=== PATIENT | male | born 1985 | race Hispanic/Latino ===

== ENCOUNTER 2017-05-07 21:08 | Emergency (ER) | payer SELFPAY ==
[~2017-05-07] VITALS: Ht 165.1 cm; Wt 83.6 kg
[2017-05-07 21:55] LABS: HEMOGLOBIN 14.1 g/dl (14.0-18.0); IMMATURE GRANULOCYTES 0.3 % (0.0-1.0); MEAN CELL VOLUME 93.2 fL CALC (80.0-100.0); MEAN CORPUSCULAR HGB 32.9 pG CALC (26.0-32.0); MEAN CORPUSCULAR HGB CONC 35.3 g/L CALC (32.0-36.0); NEUT# 7.05 thou/uL (1.82-7.42); RED BLOOD COUNT 4.29 mill/uL (4.70-6.10); RED CELL DISTRI WIDTH 11.9 % (11.5-15.5)
[2017-05-07 21:57] LABS: URINE BILIRUBIN - DIPSTICK NEGATIVE (NEGATIVE); URINE BLOOD DIPSTICK NEGATIVE (NEGATIVE); URINE CLARITY CLEAR; URINE COLOR YELLOW; URINE GLUCOSE - DIPSTICK NEGATIVE (NEGATIVE); URINE KETONE TRACE mg/dL (NEGATIVE); URINE LEUK ESTERASE NEGATIVE (NEGATIVE); URINE NITRITE - DIPSTICK NEGATIVE (Negative); URINE PH 7.5 (4.5-8.0); URINE PROTEIN - DIPSTICK TRACE mg/dL (NEG-TRACE)
[2017-05-07 22:05] LABS: ALBUMIN 4.7 g/dL (3.2-5.0); ALKALINE PHOSPHATASE 121 u/l (38-126); AMYLASE 43 u/l (30-110); ANION GAP 19 (6-22 (CALC)); BILIRUBIN, TOTAL 0.9 mg/dL (0.0-1.4); BUN 10 mg/dL (9-20); BUN/CREATININE RATIO 15 (12-20 (CALC)); CALCIUM 9.4 mg/dL (8.4-10.2); CARBON DIOXIDE 21 mmol/l (22-30); CHLORIDE 107 mmol/l (95-108); CREATININE 0.7 mg/dL (0.7-1.3); GFR > 60 ML/MIN (>=60 (CALC)); GFR FOR AFR.AMER. > 60 ML/MIN (>=60 (CALC)); GLUCOSE 100 mg/dL (75-110); LIPASE 37 u/l (23-300); POTASSIUM 3.9 mmol/l (3.5-5.1); SGOT/AST 38 u/l (17-59); SGPT/ALT 42 u/l (21-72); SODIUM 142 mmol/l (137-146); TOTAL PROTEIN 7.9 g/dL (6.3-8.2)
[2017-05-07] MEDS ORDERED: CIPROFLOXACN500 MG PO (23:24)
[2017-05-07] MEDS ORDERED: METRONIDAZOL500 MG PO (23:24)
[2017-05-07 23:35] VITALS: BP 116/66
== END 2017-05-07 23:35 | disposition home or self-care (01) | DRG 392 ==
LOC: ED 21:08
PROVIDERS: Emergency Medicine
DX: K52.9 Noninfective gastroenteritis and colitis, unspecified (principal); R50.9 Fever, unspecified; R10.30 Lower abdominal pain, unspecified
CPT/HCPCS: Q9967

== ENCOUNTER 2017-06-23 12:15 | Emergency (ER) | payer SELFPAY ==
[~2017-06-23] VITALS: Ht 165.1 cm; Wt 84.0 kg
[~2017-06-23 12:15] MED LIST: CIPROFLOXACN500 MG PO; METRONIDAZOL500 MG PO
[2017-06-23] MEDS ORDERED: CIPROFLOXACN750 MG PO (13:56)
[2017-06-23 14:48] VITALS: BP 148/90
== END 2017-06-23 15:00 | disposition home or self-care (01) | DRG 605 ==
LOC: ED 12:15
PROC: 0H9FXZZ Drainage of Right Hand Skin, External Approach (ICD-10-PCS; principal; 2017-06-23)
DX: S61.431A Puncture wound without foreign body of right hand, initial encounter (principal); L02.511 Cutaneous abscess of right hand; W45.8XXA Other foreign body or object entering through skin, initial encounter; Y93.E9 Activity, other interior property and clothing maintenance; Y92.009 Unspecified place in unspecified non-institutional (private) residence as the place of occurrence of the external cause

== ENCOUNTER 2017-06-26 14:19 | Emergency (ER) | payer SELFPAY ==
[~2017-06-26] VITALS: Ht 165.1 cm; Wt 83.6 kg
[~2017-06-26 14:19] MED LIST changes: +CIPROFLOXACN750 MG PO
[2017-06-26 15:06] LABS: HEMATOCRIT 43.5 % (39.0-50.0); HEMOGLOBIN 15.2 g/dl (14.0-18.0); IMMATURE GRANULOCYTES 0.2 % (0.0-1.0); MEAN CELL VOLUME 93.1 fL CALC (80.0-100.0); MEAN CORPUSCULAR HGB 32.5 pG CALC (26.0-32.0); MEAN CORPUSCULAR HGB CONC 34.9 g/L CALC (32.0-36.0); NEUT# 2.97 thou/uL (1.82-7.42); RED BLOOD COUNT 4.67 mill/uL (4.70-6.10); RED CELL DISTRI WIDTH 12.3 % (11.5-15.5)
[2017-06-26 15:23] LABS: ALBUMIN 4.4 g/dL (3.2-5.0); ALKALINE PHOSPHATASE 120 u/l (38-126); ANION GAP 17 (6-22 (CALC)); BILIRUBIN, TOTAL 0.7 mg/dL (0.0-1.4); BUN 11 mg/dL (9-20); BUN/CREATININE RATIO 18 (12-20 (CALC)); CALCIUM 9.6 mg/dL (8.4-10.2); CARBON DIOXIDE 24 mmol/l (22-30); CHLORIDE 108 mmol/l (95-108); CREATININE 0.6 mg/dL (0.7-1.3); GFR > 60 ML/MIN (>=60 (CALC)); GFR FOR AFR.AMER. > 60 ML/MIN (>=60 (CALC)); GLUCOSE 149 mg/dL (75-110); POTASSIUM 3.6 mmol/l (3.5-5.1); SGOT/AST 52 u/l (17-59); SGPT/ALT 41 u/l (21-72); SODIUM 144 mmol/l (137-146); TOTAL PROTEIN 7.6 g/dL (6.3-8.2)
[2017-06-26] MEDS ORDERED: PERCOCET 5/325M1 TAB PO (15:55)
[2017-06-26] MEDS ORDERED: KEFLEX500 MG PO (15:55)
[2017-06-26 16:32] VITALS: BP 137/86
[2017-06-27] MEDS ORDERED: CIPROFLOXACN750 MG PO (08:59)
[2017-06-27] MEDS ORDERED: BACTRIM DS1 TAB PO (12:23)
== END 2017-06-26 16:32 | disposition home or self-care (01) | DRG 603 ==
LOC: ED 14:19
PROVIDERS: Emergency Medicine
DX: L02.511 Cutaneous abscess of right hand (principal); L03.113 Cellulitis of right upper limb; B95.62 Methicillin resistant Staphylococcus aureus infection as the cause of diseases classified elsewhere

== ENCOUNTER 2017-06-27 08:31 | Emergency (ER) | payer SELFPAY ==
[~2017-06-27] VITALS: Ht 165.1 cm; Wt 75.0 kg
[2017-06-27 08:31] VITALS: BP 122/80
[~2017-06-27 08:31] MED LIST changes: +KEFLEX500 MG PO; +PERCOCET 5/325M1 TAB PO
[2017-06-27] MEDS ORDERED: CIPROFLOXACN750 MG PO (08:59)
[2017-06-27] MEDS ORDERED: BACTRIM DS1 TAB PO (12:23)
== END 2017-06-27 13:00 | disposition home or self-care (01) | DRG 603 ==
LOC: ED 08:31
DX: L02.511 Cutaneous abscess of right hand (principal); L03.113 Cellulitis of right upper limb; Z48.01 Encounter for change or removal of surgical wound dressing; R22.31 Localized swelling, mass and lump, right upper limb
CPT/HCPCS: Q9967

== ENCOUNTER 2017-06-28 10:57 | Emergency (ER) | payer SELFPAY ==
[~2017-06-28] VITALS: Ht 165.1 cm; Wt 75.0 kg
[~2017-06-28 10:57] MED LIST changes: +BACTRIM DS1 TAB PO
[2017-06-28 11:40] VITALS: BP 114/66
== END 2017-06-28 11:40 | disposition home or self-care (01) | DRG 951 ==
LOC: ED 10:57
DX: Z48.01 Encounter for change or removal of surgical wound dressing (principal); L02.511 Cutaneous abscess of right hand

== ENCOUNTER 2017-06-29 09:45 | Emergency (ER) | payer SELFPAY ==
[~2017-06-29] VITALS: Ht 165.1 cm; Wt 75.0 kg
[2017-06-29 10:50] VITALS: BP 126/77
== END 2017-06-29 10:50 | disposition home or self-care (01) | DRG 950 ==
LOC: ED 09:45
DX: S61.431D Puncture wound without foreign body of right hand, subsequent encounter (principal); F17.210 Nicotine dependence, cigarettes, uncomplicated; Z48.01 Encounter for change or removal of surgical wound dressing

== ENCOUNTER 2017-07-01 11:38 | Emergency (ER) | payer SELFPAY ==
[~2017-07-01] VITALS: Ht 165.1 cm; Wt 82.8 kg
[2017-07-01 12:41] VITALS: BP 116/71
== END 2017-07-01 12:41 | disposition home or self-care (01) | DRG 951 ==
LOC: ED 11:38
DX: Z48.01 Encounter for change or removal of surgical wound dressing (principal); L02.511 Cutaneous abscess of right hand

== ENCOUNTER 2017-08-22 10:33 | Emergency (ER) | payer SELFPAY ==
[~2017-08-22] VITALS: Ht 165.1 cm; Wt 82.4 kg
[2017-08-22 12:07] LABS: HEMATOCRIT 43.3 % (39.0-50.0); IMMATURE GRANULOCYTES 0.4 % (0.0-1.0); MEAN CELL VOLUME 91.9 fL CALC (80.0-100.0); MEAN CORPUSCULAR HGB 31.8 pG CALC (26.0-32.0); MEAN CORPUSCULAR HGB CONC 34.6 g/L CALC (32.0-36.0); NEUT# 3.02 thou/uL (1.82-7.42); RED BLOOD COUNT 4.71 mill/uL (4.70-6.10); RED CELL DISTRI WIDTH 12.3 % (11.5-15.5)
[2017-08-22 12:21] LABS: ALBUMIN 4.4 g/dL (3.2-5.0); ALKALINE PHOSPHATASE 102 u/l (38-126); ANION GAP 20 (6-22 (CALC)); BILIRUBIN, TOTAL 0.6 mg/dL (0.0-1.4); BUN 12 mg/dL (9-20); BUN/CREATININE RATIO 18 (12-20 (CALC)); CALCIUM 9.4 mg/dL (8.4-10.2); CARBON DIOXIDE 22 mmol/l (22-30); CHLORIDE 109 mmol/l (95-108); CREATININE 0.7 mg/dL (0.7-1.3); GFR > 60 ML/MIN (>=60 (CALC)); GFR FOR AFR.AMER. > 60 ML/MIN (>=60 (CALC)); GLUCOSE 131 mg/dL (75-110); POTASSIUM 4.1 mmol/l (3.5-5.1); SGOT/AST 35 u/l (17-59); SGPT/ALT 37 u/l (21-72); SODIUM 147 mmol/l (137-146); TOTAL PROTEIN 7.5 g/dL (6.3-8.2)
[2017-08-22] MEDS ORDERED: DOXYCYCL HYC100 MG PO (13:46)
[2017-08-22] MEDS ORDERED: ZITHROMAX250 MG PO (13:46)
[2017-08-22 14:18] VITALS: BP 108/66
== END 2017-08-22 14:55 | disposition home or self-care (01) | DRG 730 ==
LOC: ED 10:33
PROVIDERS: Emergency Medicine
DX: N50.89 Other specified disorders of the male genital organs (principal); L98.9 Disorder of the skin and subcutaneous tissue, unspecified

== ENCOUNTER 2018-06-08 19:01 | Emergency (ER) | payer SELFPAY ==
[~2018-06-08] VITALS: Ht 165.1 cm; Wt 77.4 kg
[~2018-06-08 19:01] MED LIST changes: +DOXYCYCL HYC100 MG PO; +ZITHROMAX250 MG PO
[2018-06-08] MEDS ORDERED: XANAX0.5 MG PO (20:45)
[2018-06-08 20:50] VITALS: BP 134/77
== END 2018-06-08 20:55 | disposition home or self-care (01) | DRG 880 ==
LOC: ED 19:01
DX: F41.9 Anxiety disorder, unspecified (principal)
CPT/HCPCS: J2060